=== PATIENT | male | born 1960 | race Two or more races ===

== ENCOUNTER 2025-10-24 09:26 | Outpatient (AMB) | payer OTHER, SELFPAY ==
--- OUTSIDE RECORDS SUMMARY | 2025-10-24 09:31 | XMS_ITS | Encounter Summary ---
Author Organization [facility] Address [address] [place] [address] Care Team Providers Care Variety Performer Name Role Phone Ventura Camacho MD Primary Care Provider [phone] Reason for Referral * Consultation (Routine) - Closed Specialty Diagnoses / Procedures Referred By Kevin payton Referred To Contact Neurology Diagnoses Dementia, unspecified dementia severity, unspecified dementia type, unspecified whether behavioral, psychotic, or mood disturbance or anxiety (CMS/HCC V24, CMS/HCC V28) Ventura Camacho MD 175 [facility] [address] [place] [address] Phone: tel: fax: [facility] [address] [address] Phone: tel: fax: Referral ID Status Reason Start Date Expiration Date V isits Requested Visits Authorized [id number] Closed Specialty Services Required 06/14/2025 06/14/2026 12 12 Reason for Visit * Reason Onset Date Comments Referral 06/08/2025 Encounter Details Date Type Department Care Team ([facility] st Contact Info) Description 06/08/2025 Telephone Internal Medicine - [place] 175 [facility] [address] [place] [address] Ventura Camacho MD [address] [phone] Social History Tobacco Use Types Packs/Day Years Used Date Smoking Tobacco: Some Days Cigarettes 0.5 48 Started: 1975 Smokeless Tobacco: Never Alcohol Use Standard Drinks/Week Comments Not Currently 0 (1 standard drink = 0.6 oz pur e alcohol) Interpersonal Safety Answer Date Record ed Physical Abuse Unrecognized value 03/15/2025 Verbal Abuse Unrecognized value 03/15/2025 Education Answer Date Recorded What is the highest level of school you have completed or the highest degree you have received? Some college, no degree 05/24/2025 Sex and Gender Information Value Date Recorded Sex Assigned at Male 01/03/2025 2:12 PM EST Legal Sex Male 5:36 AM EST Gender Identity Male 01/03/2025 2:12 PM EST Sexual Orientation Straight 01/03/2025 2: 12 PM EST documented as of this encounter Progress Notes * Sheree Gaming MA - 06/15/2025 11:47 AM EDT Faxed * Ventura Camacho MD - 06/14/2025 3:09 PM EDT Referral done * Irving Snider MA - 06/08/2025 3:44 PM EDT Referral pended please send documented in this encounter Plan of Treatment Upcoming Encounters Date Type Department Care Team (Late st Contact Info) Description 11/26/2025 2:15 PM EST Office Visit Internal Medicine - [address] [phone] Ventura Camacho MD 175 [facility] [address] [place] [phone] 03/13/2026 10:00 AM EDT Ancillary Procedure [facility] [address] [place] [phone] 04/22/2026 1:00 PM EDT Office Visit Vascular Surgery - [place] [address] [place] [phone] Fox Valentine MD [address] [place] [address] Scheduled Referrals Name Type Priority Associated Diagnoses Order Schedule Ambulatory referral to Neurology Outpatient Referral Routine Dementia, unspecified dementia severity, unspecified dementia type, unspecified whether behavioral, psychotic, or mood disturbance or anxiety ([facility] V24, [facility] V28) 1 Occurrences starting 06/14/2025 until 06/08/2026 documented as of this encounter Visit Diagnoses Diagnosis Dementia, unspecified dementia severity, unspecified dementia type, unspecified whether behavioral, psychotic, or mood disturbance or anxiety ([facility] V24, [facility] V28)- Primary documented in this encounter Care Teams Variety Performer Relationship Specialty Start Date End Date Ventura Camacho MD 175 [facility] [address] [place] [phone] PCP - General 07/27/23 documented as of this encounter
--- OUTSIDE RECORDS SUMMARY | 2025-10-24 09:32 | XMS_ITS | Clinical Summary ---
Author Organization 175 [facility] Address 175 [place] [address] Phone Care Team Providers Care After School Program Director Name Role Phone Ventura Camacho MD Primary Care Provider [phone] Allergies Active Allergy Reactions Criticality Noted Date Comments Bee Venom Protein (Honey Bee) Anaphylaxis High 09/11 Pollen Extracts Sneezing Medium 09/11/2024 Medications sildenafiL (VIAGRA) 50 mg tablet Take 1 tablet (50 mg total) by mouth if needed. Active nicotine polacrilex (COMMIT) 4 mg lozengeIndicat ions:Tobacco dependency Dissolve 1 lozenge (4 mg total) in the mouth every 2 (two) hours if needed for smoking cessation. 100 lozenge 3 5 Active nicotine (NICODERM CQ) 21 mg/[address]: [address] dependency Place 1 patch on the skin 1 (one) time each day at the same time. 30 each 2 5 Active aspirin 81 mg EC tablet Take 1 tablet (81 mg total) by mouth 1 (one) time each day. 90 each 3 5 026 Active acetaminophen (TYLENOL 8 HOUR) 650 mg 8 hr tablet Take 1 tablet (650 mg total) by mouth every 8 (eight) hours if needed for mild pain. Do not crush, chew, or split. 30 tablet 5 Active oxyCODONE (ROXICODONE) 5 mg immediate release tablet Take 1 tablet (5 mg total) by mouth every 6 (six) hours if needed for severe pain for up to 4 doses. Max Daily Amount: 20 mg 4 tablet 5 Active tamsulosin (FLOMAX) 0.4 mg 24 hr capsule Take 1 capsule (0.4 mg total) by mouth at bedtime. 5 Active QUEtiapine (SEROquel) 100 mg tablet Take 1 tablet (100 mg total) by mouth at bedtime. at bedtime 30 each 5 5 026 Active thiamine 100 mg tablet TAKE 1 TABLET BY MOUTH EVERY DAY 90 tablet 5 Active atorvastatin (LIPITOR) 80 mg tablet TAKE 1 TABLET BY MOUTH EVERY DAY 90 tablet 1 5 Active cholecalcifero l (VITAMIN D-3) 50 mcg (2,000 unit) tablet TAKE 1 TABLET BY MOUTH EVERY DAY 90 tablet 5 Active sertraline (ZOLOFT) 25 mg tablet TAKE 1 TABLET BY MOUTH EVERY MORNING 30 tablet 5 Active folic acid (FOLVITE) 1 mg tablet TAKE 1 TABLET BY MOUTH EVERY DAY 90 tablet 1 5 Active donepeziL (ARICEPT) 10 mg tablet TAKE 1 TABLET BY MOUTH EVERY DAY 30 tablet 5 Active omeprazole (PriLOSEC) [address] capsule TAKE 1 CAPSULE BY MOUTH EVERY DAY 90 capsule 5 Active folic acid (FOLVITE) 1 mg tablet TAKE 1 TABLET BY MOUTH EVERY DAY 90 tablet 2 5 025 Discontinued omeprazole (PriLOSEC) [address] capsule TAKE 1 CAPSULE BY MOUTH EVERY DAY 90 capsule 5 025 Discontinued donepeziL (ARICEPT) 10 mg tablet TAKE 1 TABLET BY MOUTH EVERY DAY 30 tablet 1 5 025 Discontinued sertraline (ZOLOFT) 25 mg tablet TAKE 1 TABLET BY MOUTH EVERY MORNING 30 tablet 5 025 Discontinued Active Problems Problem Noted Date Diagnosed Date Pillar pain of extremity 07/19/2025 Stopped smoking with greater than 40 pack year h istory 05/24/2025 S/P carpal tunnel release 03/30/2025 Carpal tunnel syndrome of left wrist 12/05/2024 Alcohol use disorder 10/13/2023 Cerebrovascular accident (CVA) 10/13/2023 Cocaine abuse 10/13/2023 Gastroesophageal reflux disease 10/13/2023 Mixed hyperlipidemia 10/13/2023 Smoking 10/13/2023 Encounters Date Type Department Care Team Description 09/24/2025 Telephone Internal Medicine [facility] [address] [phone] Ventura Camacho MD 09/24/2025 Telephone Internal Medicine [facility] [address] [phone] Ventura Camacho MD 09/24/2025 [place] Internal [facility] [address] [phone] Ventura Camacho MD 08/23/2025 12:00 PM EDT Treatment [facility] Occupational Therapy [address] [place] [phone] Mendy Samuel OT S/P carpal tunnel release (Primary Dx) 08/16/2025 1:00 PM EDT Treatment [facility] Occupational Therapy [address] [place] [phone] Nena Singh MORENO S/P carpal tunnel release (Primary Dx); Carpal tunnel syndrome of left wrist 07/31/2025 12:45 PM EDT Treatment [facility] Occupational Therapy [address] [place] [phone] Nena Singh MORENO S/P carpal tunnel release (Primary Dx); Carpal tunnel syndrome of left wrist from Last 3 Months Surgical History Surgery Date Site/Laterality Comments OTHER SURGICAL HISTORY 05/22/2021 N/A PROCEDURE: VT RPR UMBILICAL HRNA 5 YRS/> REDUCIBLE; COMMENT: open umbilical hernia repair with mesh - Kaye Canales HERNIA REPAIR TRACHEAL SURGERY CARPAL TUNNEL RELEASE 03/15/2025 Left Left endoscopic carpal tunnel release Medical History Medical History Date Comments Hernia, umbilical DX:Hernia, umb ilical Male erectile dysfunction DX:Mal e erectile dysfunction Syphilis DX:Syphilis; COM MENT: hx , treated in 2014 Colon adenomas DX:Colon adenoma s; COMMENT: colonoscopy 08/2015 repeat 08/2020 due to adenomas Stroke ([facility]/HCC V24, [facility] V28) 2022 DX:Stroke (HCC); COMMENT: from coccain Family History Medical History Relation Name Comments Diabetes Maternal Grandfather Diabetes Maternal Grandmother Diabetes Mother Hypertension Sister Relation Name Status Comments Father Maternal Grandfather Maternal Grandmother Mother Alive Paternal Grandfather Paternal Grandmother Sister Social History Tobacco Use Types Packs/Day Years Used Date Smoking Tobacco: Some Days Cigarettes 0.5 48 Started: 1975 Smokeless Tobacco: Never Tobacco Cessation:Ready to Q uit: Not Asked; Counseling Given: Not Answered Alcohol Use Standard Drinks/Week Comments Not Currently [...] Orientation Straight 01/03/2025 2: 12 PM EST Last Filed Vital Signs Vital Sign Reading Time Taken Comments Blood Pressure 122/62 05/24/2025 1:08 PM EDT Pulse 86 05/24/2025 1:08 PM EDT Temperature 36.3 C (97.3 F) 03/15/2025 2:15 PM EDT Respiratory Rate 16 04/16/2025 10:17 AM EDT Oxygen Saturation 97% 05/24/2025 1:08 PM EDT Inhaled Oxygen Concentration - - Weight 72.6 kg (160 lb) 07/17/2025 11:24 AM EDT Height 170.2 cm (5' 7 ) 07/17/2025 11:24 AM EDT Body Mass Index 25.06 07/17/2025 11:24 AM EDT Plan of Treatment Upcoming Encounters Date Type Department Care Team (Late st Contact Info) Description 11/26/2025 2:15 PM EST Office Visit Internal Medicine - [address] [place] [phone] Ventura Camacho MD 175 [facility] [address] [place] [address] 03/13/2026 10:00 AM EDT Ancillary Procedure [facility] - [facility] [address] [place] [phone] 04/22/2026 1:00 PM EDT Office Visit Vascular Surgery - [place] [address] [place] [phone] Fox Valentine MD [address] [place] [phone] Health Maintenance Due Date Last Done Comments Colorectal Cancer Screening: Colonoscopy 1960 Hepatitis A Vaccines (1 of 2 - Risk 2-dose series) 1981 COVID-19 Vaccine (3 - Moderna risk series) 02/07/2021 01/10/2021, 12/13/2020 Influenza Vaccine (#1) 2025 Zoster Vaccines (2 of 2) 08/08/2025 06/13/2025 DTaP,Tdap,and Td Vaccines (3 - Td or Tdap) 10/11/2025 10/11/2015, 08/27/2010 Depression Screening 10/31/2025 05/23/2024 Postpon ed from 11/01/2024 (Not clinically appropriate to address at this time) Lung Cancer Screening (Low Dose CT) 01/03/2026 01/03/2025, 01/12/2024, 01/04/2023, Additional history exists Social Influencers of Health Screening 05/24/2026 05/24/2025 Cholesterol Screening (Lipid Panel) 05/24/2030 05/24/2025, 05/23/2024, 05/23/2024, Additional history exists Pneumococcal Vaccine: 50+ Years Completed 12/30/2022 Hepatitis C Screening Completed 05/23/2024 , 12/30/2022, 12/19/2020, Additional history exists HIV Screening Completed 05/24/2025 RSV Immunization Adult Patients Completed 06/13/2025 HIB Vaccines Aged Out No longer eligi ble based on patient's age to complete this topic HPV Vaccines Aged Out No longer eligi ble based on patient's age to complete this topic Hepatitis B Vaccines Aged Out No long er eligible based on patient's age to complete this topic IPV Vaccines Aged Out No longer eligi ble based on patient's age to complete this topic MMR Vaccines Aged Out No longer eligi ble based on patient's age to complete this topic Meningococcal ACWY Vaccine Aged Out N o longer eligible based on patient's age to complete this topic Meningococcal B Vaccine Aged Out No l onger eligible based on patient's age to complete this topic RSV Immunization Patients Under 20 months Aged Out No longer eligible b ased on patient's age to complete this topic Varicella Vaccines Aged Out No longer eligible based on patient's age to complete this topic Medical Devices Implanted Type Area Satellite Dish Repairer Device Identifier Shelf Expiration Date Model / Serial / Lot Front Tooth N/A: Mouth Procedures Procedure Name Priority Date/Time Associated Diagnosis Comments HIV 1, 2 ANTIBODY, P24 ANTIGEN WITH REFLEX TO DIFFERENTIATION Routine 05/24/2025 2:02 PM EDT Encounter for annual physical exam LIPID PANEL WITH REFLEX TO DIRECT LDL Routine 05/24/2025 2:02 PM EDT Encounter for annual physical exam Mixed hyperlipidemia CT LUNG SCREENING Routine 01/03/2025 2:2 5 PM EST Encounter for screening for malignant neoplasm of respiratory organs Nicotine dependence, cigarettes, uncomplicated DEPRESSION SCREENING Routine 05/23/2024 HEPATITIS C SCREENING Routine 05/23/2024 from Last 3 Months or Most Recently Relevant to Health Maintenance Results * HIV 1,2 antibody, p24 antigen with reflex to differentiation (05/24/2025 2:02 PM EDT) HIV Combo AB/AG Negative Negative LAB CHEMISTRY METHOD 05/24/2025 8:27 PM EDT [facility] Blood Venous blood specimen / Unknown Venipuncture / Unknown 05/24/2025 2:02 PM EDT 05/24/2025 2:02 PM EDT Narrative [facility] - 05/24/2025 8:27 PM EDT This assay is a 4th generation assay allowing for earlier detection of HIV infection by detecting the presence of the HIV-1 p24 antigen as well as the traditional antibodies to HIV type 1 (including group O) and type 2. Use of a 4th generation assay is the current CDC recommendation for HIV screening. us Ventura Camacho MD LAB BLOOD ORDERABLES Final Resul t [facility] [address] [place] [address], [place] [phone] * (ABNORMAL) Lipid panel with reflex to direct LDL (05/24/2025 2:02 PM EDT) Cholesterol 90 0 - 200 mg/dL LAB CHEMISTRY METHOD 05/24/2025 7:20 PM EDT [facility] Triglycerides 39 0 - 150 mg/dL LAB CHEMISTRY METHOD 05/24/2025 7:20 PM [facility] HDL 39(L) >=40 mg/dL LAB CHEMISTRY METHOD 05/24/2025 7:20 PM EDT [facility] LDL Calculated 43 0 - 100 mg/dL LAB CHEMISTRY METHOD 05/24/2025 7:20 PM [facility] VLDL Cholesterol Santiago 7.8 mg/dL LAB CHEMISTRY METHOD 05/24/2025 7:20 PM EDT [facility] Non HDL Chol. (LDL+VLDL) 51 <145 mg/dL LAB CHEMISTRY METHOD 05/24/2025 7:20 PM EDT [facility] Chol/HDL Ratio 2.3 0.0 - 4.4 LAB CHEMISTRY METHOD 05/24/2025 7:20 PM [facility] Blood Venous blood specimen / Unknown Venipuncture / Unknown 05/24/2025 2:02 PM EDT 05/24/2025 2:02 PM EDT us Ventura Camacho MD LAB BLOOD ORDERABLES Final Resul t [facility] [address] [place] [address], [place] [phone] * CT Lung Screening (01/03/2025 2:25 PM EST) Anatomical Region Laterality Modality Chest Computed Tomogra phy 01/05/2025 5:40 PM EST Impressions 01/05/2025 5:50 PM EST No suspicious mass or nodule. No suspicious interval change A tiny opacity in the right apex measuring 0.2 cm is unchanged LUNG RADS: Lung-RADS 1: NEGATIVE S Modifier (Significant or Potentially Significant Findings): None present No suspicious nonpulmonary findings. RECOMMENDATIONS: 12 month screening low dose [address] -------- FINAL REPORT -------- Dictated By: Moris Jimenez Dictated Date: 01/05/2025 17:40 ET Assigned Physician: Moris Jimenez Reviewed and Electronically Signed By: Moris Jimenez Signed Date: 01/05/2025 17:50 ET Workstation ID: [id number] Transcribed By: Self Edit Transcribed Date: 01/05/2025 17:40 ET Narrative 01/05/2025 5:50 PM EST EXAMINATION: CT CHEST WITHOUT CONTRAST LUNG CANCER SCREENING, LOW DOSE CLINICAL INFORMATION: Lung cancer screening. Current smoker. COMPARISON: Portions of previous CT 01/12/2024 TECHNIQUE: Multidetector CT. Examination of the chest. Examination of the chest without IV contrast. Reformatting in the coronal and sagittal planes. Device: Resolver DLP: 178 mGy-cm CTDI: 4.89 Dose optimization was performed including the use of low-dose iterative reconstruction technique with automatic exposure control based on patient size. Type of contrast: None Volume of IV contrast: None Volume of contrast discarded: 0 mL FINDINGS: LUNG: No abnormality of the trachea or mainstem bronchi. No focal pneumonia. LUNG NODULES: There are no suspicious nodules or masses. OTHER PULMONARY: No honeycomb formation. MEDIASTINUM: There are no enlarged mediastinal or hilar lymph nodes. No suspicious abnormalities of the esophagus CARDIAC: The heart is not enlarged. No pericardial fluid or thickening There are moderate coronary calcifications. VASCULAR: There is no thoracic aortic aneurysm. The main pulmonary artery is normal caliber PLEURA: There is no pleural fluid or pneumothorax AXILLA/CHEST WALL: There are no enlarged axillary lymph nodes. No chest wall mass demonstrated VISUALIZED UPPER ABDOMEN: No suspicious abnormality on limited assessment of the visualized upper abdomen. Tiny likely unchanged low attenuating lesion in the dome of the left lobe of the liver (/). MUSCULOSKELETAL: No new suspicious focal bony lesion demonstrated. No change in the ribs. Procedure Note Moris Jimenez MD - 01/05/2025 EXAMINATION: CT CHEST WITHOUT CONTRAST LUNG CANCER SCREENING, LOW DOSE CLINICAL INFORMATION: Lung cancer screening. Current smoker. COMPARISON: Portions of previous CT 01/12/2024 TECHNIQUE: Multidetector CT. Examination of the chest. Examination of the chest without IV contrast. Reformatting in the coronal and sagittal planes. Device: Resolver DLP: 178 mGy-cm CTDI: 4.89 Dose optimization was performed including the use of low-dose iterativereconstruction technique with automatic exposure control based on patientsize. Type of contrast: None Volume of IV contrast: None Volume of contrast discarded: 0 mL FINDINGS: LUNG: No abnormality of the trachea or mainstem bronchi. No focalpneumonia. LUNG NODULES: There are no suspicious nodules or masses. OTHER PULMONARY: No honeycomb formation. MEDIASTINUM: There are no enlarged mediastinal or hilar lymph nodes. Nosuspicious abnormalities of the esophagus CARDIAC: The heart is not enlarged. No pericardial fluid or thickening There are moderate coronary calcifications. VASCULAR: There is no thoracic aortic aneurysm. The main pulmonary arteryis normal caliber PLEURA: There is no pleural fluid or pneumothorax AXILLA/CHEST WALL: There are no enlarged axillary lymph nodes. No chestwall mass demonstrated VISUALIZED UPPER ABDOMEN: No suspicious abnormality on limited assessmentof the visualized upper abdomen. Tiny likely unchanged low attenuatinglesion in the dome of the left lobe of the liver (/). MUSCULOSKELETAL: No new suspicious focal bony lesion demonstrated. Nochange in the ribs. IMPRESSION: No suspicious mass or nodule. No suspicious interval change A tiny opacity in the right apex measuring 0.2 cm is unchanged LUNG RADS: Lung-RADS 1: NEGATIVE S Modifier (Significant or Potentially Significant Findings): Nonepresent No suspicious nonpulmonary findings. RECOMMENDATIONS: 12 [address] screening low dose [address] -------- FINAL REPORT -------- Dictated By: Moris Jimenez Dictated Date: 01/05/2025 17:40 ET Assigned Physician: Moris Jimenez Reviewed and Electronically Signed By: Moris Jimenez Signed Date: 01/05/2025 17:50 ET Workstation ID: [id number] Transcribed By: Self Edit Transcribed Date: 01/05/2025 17:40 ET Cheng Ying MD IMG CT PROCEDURES Final Result * Depression Screening (05/23/2024) Depression Screening abstracted Historical Provider HEALTH MAINTENANCE Final Result * Hepatitis C Screening (05/23/2024) Hepatitis C Screening abstracted Historical Provider HEALTH MAINTENANCE Final Result from Last 3 Months or Most Recently Relevant to Health Maintenance Insurance [facility] [address] Care Teams After School Program Director Relationship Specialty Start Date End Date Ventura Camacho MD 175 [facility] [address] [place] [address] PCP - General 07/27/23
--- OUTSIDE RECORDS SUMMARY | 2025-10-24 09:32 | XMS_ITS ---
Author Name [facility] Organization Unknown Care Team Organization Name Specialty Phone Email Start Date End Da ester [facility] Ventura Camacho Primary Care 08/31/2023 024
--- NOTE | 2025-10-24 09:44 | A.OFFVIS_ITS ---
Intake Visit Reasons: med follow up Allergies No Known Allergies Allergy (Verified 08/16/25 09:14) HPI Comments Details: 64 yo man with h/o polydrug abuse, still smoking and using marijuana on regular basis, a stroke affecting his left side in 2022 was here for c/o forgetfulness. He is presenting for medication renewal. He reports taking Seroquel 100 mg at night for sleep and states he does not have difficulty sleeping with the medication. For a diagnosis of dementia, he started taking donepezil a couple of months ago. His other medications include sertraline 25 mg in the morning and a medication for cholesterol. [facility] Medical History (Updated 10/24/25 @ 09:58 by Amrita Luna MD) Multifactorial dementia Multifactorial gait disorder Paresthesia of skin Review of Systems Narrative - Neurological: Reports dementia. Denies difficulty sleeping while on Seroquel. Physical Exam Neuro Other: Mental Status: Alert and oriented to person, place, and time. Normal attention. Normal sp ontaneous speech, fluency, and comprehension. Cranial Nerves: CN II: Visual wiseman full to confrontation, visual acuity intact. CN III, IV, : Pupils equal, round, reactive to light and accommodation. Extraocular movements are normal. CN V: Facial sensation is normal. CN VII: Facial movements symmetrical. CN VIII: Hearing intact to bedside conversation is normal. CN IX, X: Palate elevates symmetrically. CN XI: Shoulder shrug and head turn symmetrical. CN XII: Tongue midline without atrophy or fasciculations. Left hemiparetic slow cautious gait. Extrapyramidal: Full facial expressions and blinking. No rigidity. Movements are appropriate with no tremor or abnormality. Speech: Normal; no dysarthria or tremor. Assessment & Plan Assessment & Plan (1) Multifactorial dementia: Comment: CT brain WO at [facility] in 2022: Mod MVD, right post parietal cortical infarct MRI brain WO at [facility] in 2022: Same as CT Code(s): F03.90 - Unspecified dementia, unspecified severity, without behavioral disturbance, psychotic disturbance, mood disturbance, and anxiety Category: Medical (2) Multifactorial gait disorder: Code(s): R26.89 - Other abnormalities of gait and mobility Category: Medical (3) Cerebral microvascular disease: Code(s): I67.89 - Other cerebrovascular disease Category: Medical Plan Impression: a: Multifactorial dementia b: Multifactorial gait disorder c: Insomnia Rec: a: Donepezil 10mg one a day b: Sertraline 25mg one in am c: Quetiapine 100mg one at bedtime I discussed the patient's current medications with him, confirming he is taking sertraline, Seroquel, and donepezil. I informed him that I would send 6-month renewals for these three medications to [facility]. I advised against increasing the Seroquel dose above the current 100 mg nightly. I instructed him that the pharmacy will contact my office for future refills. Medications: New sertraline 25 mg PO DAILY 90 tabs 1RF quetiapine 100 mg PO BEDTIME 90 tabs 1RF Refilled donepezil 10 mg PO DAILY 90 tabs 1RF Coding Level of Care Code Est Pt Level 3 (69710) Diagnoses Multifactorial dementia F03.90 Multifactorial gait disorder R26.89 Cerebral microvascular disease I67.89
== END 2025-10-24 10:38 | disposition home or self-care (01) ==
LOC: HO.HSM 09:27
PROVIDERS: PCP Student in an Organized Health Care Education/Training Program; Visit Provider Psychiatry & Neurology Neurology
DX: F03.90 Unspecified dementia, unspecified severity, without behavioral disturbance, psychotic disturbance, mood disturbance, and anxiety (principal); R26.89 Other abnormalities of gait and mobility; I67.89 Other cerebrovascular disease
CPT/HCPCS: 99213

== ENCOUNTER → 2025-10-24 09:26 | Outpatient (BNVA) | payer OTHER, SELFPAY | PROVIDERS: PCP Student in an Organized Health Care Education/Training Program; Visit Provider Psychiatry & Neurology Neurology | DX: F03.90 Unspecified dementia, unspecified severity, without behavioral disturbance, psychotic disturbance, mood disturbance, and anxiety (principal); I67.89 Other cerebrovascular disease; G47.00 Insomnia, unspecified; R26.89 Other abnormalities of gait and mobility; Z79.899 Other long term (current) drug therapy | CPT/HCPCS: 99212 ==